=== PATIENT | male | born 1965 | race Caucasian/White ===

== ENCOUNTER 2017-01-25 14:00 | Observation (INO) | payer SELFPAY ==
[2017-01-25] MEDS ORDERED: REGADENOSON INJ 0.4 MG/5 ML DISP.SYRIN IV ONE (14:09)
[2017-01-25] MEDS ORDERED: AMINOPHYLLINE INJ/PF 250 MG/10 ML SDV IV ONE (14:09)
--- NOTE | 2017-01-25 14:30 | ER Document Report ---
ED Medical Screen (RME) - General Chief Complaint: Chest Pain Stated Complaint: CHEST PAIN Notes: This 51-year-old male reports onset about 10 AM of severe left anterior chest pain. States like he was hit with a sledgehammer. He is somewhat anxious and diaphoretic. He is a smoker. He reports some shortness of breath. His father of [place] in his early 50s and an uncle of [place] in early 50s. Past history is significant for left testicular cancer treated with orchiectomy , radiation and chemotherapy many years ago. I have greeted and performed a rapid initial assessment of this patient. A comprehensive ED assessment and evaluation of the patient, analysis of test results and completion of the medical decision making process will be conducted by additional ED providers. TRAVEL OUTSIDE OF THE [place] IN LAST 30 DAYS: No - Related Data Allergies/Adverse Reactions: No Known Allergies Allergy (Verified 01/25/17 14:27) Past Medical History Neurological Medical History: Reports: Hx Seizures Renal/ Medical History: Denies: Hx Peritoneal Dialysis - Immunizations Hx Diphtheria, Pertussis, Tetanus Vaccination: No Physical Exam - Vital signs Vitals: Temp Pulse Resp BP Pulse Ox 97.9 F 82 20 157/88 H 97 01/25/17 14:20 01/25/17 14:20 01/25/17 14:20 01/25/17 14:20 01/25/17 14:20 Course - Vital Signs Vital signs: Temp Pulse Resp BP Pulse Ox 97.9 F 82 20 157/88 H 97 01/25/17 14:20 01/25/17 14:20 01/25/17 14:20 01/25/17 14:20 01/25/17 14:20
[2017-01-25 15:20] LABS: ABSOLUTE EOSINOPHILS # (AUTO) 0.1 10^3/uL (0.0-0.6); ABSOLUTE MONOCYTES (AUTO) 0.7 10^3/uL (0.1-1.4); ABSOLUTE NEUT (AUTO) 5.9 10^3/uL (1.7-8.2); BASOPHILS % (AUTO) 0.4 % (0-2); EOSINOPHILS % (AUTO) 1.3 % (0-6); HEMATOCRIT 43.6 % (37.9-51.0); HEMOGLOBIN 15.1 g/dL (13.5-17.0); HGB HCT DIFFERENCE 1.7; LYMPHOCYTES % (AUTO) 22.5 % (13-45); MEAN CORPUSCULAR HEMOGLOBIN 30.4 pg (27.0-33.4); MEAN CORPUSCULAR HGB CONC 34.7 g/dL (32.0-36.0); MEAN CORPUSCULAR VOLUME 88 fl (80-97); MONOCYTES % (AUTO) 8.1 % (3-13); RED BLOOD COUNT 4.98 10^6/uL (4.35-5.55); RED CELL DISTRIBUTION WIDTH 13.2 % (11.5-14.0); SEGMENTED NEUTROPHILS % (AUTO) 67.7 % (42-78); WHITE BLOOD COUNT 8.8 10^3/uL (4.0-10.5)
[2017-01-25 15:44] LABS: ALANINE AMINOTRANSFERASE 33 U/L (21-72); ALBUMIN 4.7 g/dL (3.5-5.0); ALKALINE PHOSPHATASE 92 U/L (38-126); ANION GAP 14 (5-19); ASPARTATE AMINO TRANSFERASE 28 U/L (17-59); BILIRUBIN,DIRECT 0.3 mg/dL (0.0-0.4); BILIRUBIN,TOTAL 0.7 mg/dL (0.2-1.3); BLOOD UREA NITROGEN 18 mg/dL (7-20); CARBON DIOXIDE 28 mmol/L (22-30); CHLORIDE 102 mmol/L (98-107); CREATINE KINASE 157 U/L (55-170); CREATININE RESULT 0.99 mg/dL (0.52-1.25); GLUCOSE 74 mg/dL (75-110); POTASSIUM 4.9 mmol/L (3.6-5.0); SODIUM 143.7 mmol/L (137-145); TOTAL PROTEIN 7.8 g/dL (6.3-8.2)
--- NOTE | 2017-01-25 15:52 | ER Document Report ---
ED Cardiac - General Chief Complaint: Chest Pain Stated Complaint: CHEST PAIN Time seen by provider: 15:47 Mode of Arrival: Ambulatory Information source: Patient Notes: This is a 51-year-old man who is an active smoker, history of an elevated blood pressure and a significant family for heart disease or presents to the emergency room after an episode of chest pain. Patient states he had chest ache last night but didn't think it was that bad. He was then working in the yard today and he had severe left sided chest pain (like being hit with a hammer ) and experienced left arm numbness and a choking sensation. Patient states he felt short of breath at the time. The patient's states that he looked pale at the time. The patient states the symptoms lasted about 35 minutes. He denies any radiation to the back. He denies any abdominal pain. Currently he is in no distress. Past medical history: Testicular cancer status post left orchiectomy, chemotherapy, radiation therapy (in [place] in 2000). Patient has had no recurrence of cancer since that time. TRAVEL OUTSIDE OF THE [place] IN LAST 30 DAYS: No - HPI Patient complains to provider of: Chest pain Use of: denies: Alcohol, Amphetamines, Bath salts, Caffeine, Cocaine, Decongestants, Other Was the onset of pain: Sudden Is the pain a: New problem Chest pain location: Other - Left chest pain Quality of pain: Crushing Chest pain radiation location: Left shoulder Severity now: None Severity at worst: Severe Pain level currently: Denies Chest pain precipitating factors: Physical Exertion - Patient was doing yard work Cardiac risk factors: Hypertension, Smoker, + Family history Associated symptoms: Shortness of breath, Other - Choking sensation Exacerbated by: Denies Relieved by: Nothing Similar symptoms previously: No Recently seen / treated by doctor: No - Related Data Allergies/Adverse Reactions: No Known Allergies Allergy (Verified 01/25/17 14:27) Home Medications: Current Home Medications Omeprazole 20 mg PO DAILY 01/25/17 [History] Past Medical History - General Information source: Patient - Social History Smoking Status: Current Every Day Smoker Cigarette use (# per day): Yes - 1-1/2 packs per day Chew tobacco use (# tins/day): No Frequency of alcohol use: None Drug Abuse: None Lives with: Family Family History: Reviewed & Not Pertinent Patient has suicidal ideation: No Patient has homicidal ideation: No - Medical History Medical History: Negative Neurological Medical History: Reports: Hx Seizures Renal/ Medical History: Denies: Hx Peritoneal Dialysis Past Surgical History: Reports: Hx Genitourinary Surgery - Immunizations Hx Diphtheria, Pertussis, Tetanus Vaccination: No Review of Systems - Review of Systems Constitutional: See HPI EENT: No symptoms reported Cardiovascular: See HPI Respiratory: See HPI Gastrointestinal: No symptoms reported Genitourinary: No symptoms reported Male Genitourinary: No symptoms reported Musculoskeletal: No symptoms reported Skin: No symptoms reported Hematologic/Lymphatic: No symptoms reported Neurological/Psychological: No symptoms reported Physical Exam - Vital signs Vitals: Temp Pulse Resp BP Pulse Ox 97.9 F 82 20 157/88 H 97 01/25/17 14:20 01/25/17 14:20 01/25/17 14:20 01/25/17 14:20 01/25/17 14:20 Notes: Physical exam: GENERAL: 51-year-old man, alert and oriented 3, no acute distress. HEAD: Atraumatic, normocephalic. EYES: Pupils equal round and reactive to light, extraocular movements intact, sclera anicteric, conjunctiva are normal. ENT: TMs normal, nares patent, oropharynx clear without exudates. Moist mucous membranes. NECK: Normal range of motion, supple without lymphadenopathy or JVD. LUNGS: Breath sounds clear to auscultation bilaterally and equal. No wheezes rales or rhonchi. HEART: Regular rate and rhythm without murmurs, rubs or gallops. ABDOMEN: Soft, normoactive bowel sounds. No tenderness to palpation. No guarding, no rebound. No masses appreciated. Rectal: Brown stool, sent for study EXTREMITIES: Normal range of motion, no pitting or edema. No clubbing or cyanosis. NEUROLOGICAL: Cranial nerves II through XII grossly intact. Normal speech, normal gait. PSYCH: Normal mood, normal affect. SKIN: Warm, Dry, normal turgor, no rashes or lesions noted. Course - Vital Signs Vital signs: Temp Pulse Resp BP Pulse Ox 97.9 F 79 18 144/100 H 95 01/25/17 14:20 01/25/17 20:52 01/25/17 19:08 01/25/17 19:08 01/25/17 19:08 - Laboratory Result Diagrams: 01/25/17 14:40 01/25/17 14:40 Laboratory results interpreted by me: 01/25/17 14:40 Glucose 74 L - Diagnostic Test Radiology reviewed: Image reviewed, Reports reviewed - Chest x-ray shows no acute infiltrates - EKG Interpretation by Me Rate: Normal Rhythm: NSR - EKG shows normal sinus rhythm with a ventricular rate of 87, no acute ST elevations or depressions. Discharge - Discharge Clinical Impression: chest pain Admitting Provider: Hospitalist - Dr. Swanson Unit Admitted: Telemetry
[2017-01-25] MEDS ORDERED: NITROGLYCERIN 2% OINTMENT 1 GM PACKET TP ONE (15:53)
[2017-01-25] MEDS ORDERED: ACETAMINOPHEN 325 MG TABLET PO ONE (15:53)
[2017-01-25] MEDS ORDERED: ASPIRIN 81 MG TABLET, CHEWABLE PO ONE (15:53)
[2017-01-25 15:56] LABS: CREATINE KINASE MB 1.01 ng/mL (<4.55)
[2017-01-25 15:57] LABS: TROPONIN I < 0.012 ng/mL
[2017-01-25] MEDS: NORMAL SALINE 1000 ML 1,000 ML IV PRN (16:06)
[2017-01-25] MEDS ORDERED: MORPHINE SULFATE 10 MG/ML INJ IV PRN (17:53)
[2017-01-25] MEDS ORDERED: NITROGLYCERIN 0.4 MG/TAB 25 TAB/BOTTLE SL PRN (17:54)
--- NOTE | 2017-01-25 18:23 | PDOC H&P ---
History of Present Illness Admission Date/PCP: 01/25/17 17:37 PCP none Patient complains of: Chest pain History of Present Illness: TASHI FELIPE is a 51 year old white male with past medical history significant for seizures and testicular cancer who presents to the service with complaints of chest pain. The patient states that his pain began yesterday evening. He describes it as a sledgehammer hitting his chest. he denies any radiation. He describes left arm numbness. Working around the yard today when things seemed to get worse. Chest discomfort lasted about 35 minutes. Again associated with left arm numbness, shortness of breath, and cold sweats. His was in the room with him states that he became pale. He denies any associated palpitations. He didn't try any medications. Nothing makes things better or worse. He does have a history of GERD and ulcers. Takes Prevacid and believes it is under control. Denies any recent trauma or injury to his chest wall. His father and his father's brother of [place] less than the age of 65. He is currently a smoker and has smoked 1-1/2 packs per day since the age of 18. He also consumes 6-12 beers each night on average. Last alcohol consumption was last night. In the emergency room his pain was resolved. This was prior to being seen by the ED physician. Given aspirin and nitroglycerin paste anyway. He currently denies any chest discomfort. First set of troponins was negative. EKG showed normal sinus rhythm. Past Medical History Neurological Medical History: Reports: Seizures Renal/ History Note: History of testicular cancer. 12 years ago. GI Medical History: Reports: Peptic Ulcer Disease Past Surgical History Past Surgical History: Testicular removal Social History Lives with: Family Smoking Status: Current Every Day Smoker Family History Family History: CAD, DM, Hypertension Family History: Patient's father and paternal uncle less than the age of 65 from [place] Parental Family History Reviewed: Yes Children Family History Reviewed: Yes Sibling(s) Family History Reviewed.: Yes Medication/Allergy Home Medications: Omeprazole 20 mg PO DAILY 01/25/17 Allergies/Adverse Reactions: No Known Allergies Allergy (Verified 01/25/17 14:27) Review of Systems Review of Systems: Review of systems is positive is that aren't listed in the history of present illness in addition to this the patient denies fevers chills nausea vomiting, diarrhea, constipation dizziness lightheadedness, abdominal pain, arthritic pain , hot cold flashes, visual changes or unexplained weight loss or weight gain Physical Exam Vital Signs: Temp Pulse Resp BP Pulse Ox 97.9 F 82 14 144/103 H 98 01/25/17 14:20 01/25/17 14:20 01/25/17 16:01 01/25/17 16:01 01/25/17 16:01 PHYSICAL EXAM: GENERAL: This is a well-developed well-nourished white male resting in no acute distress. HEENT: Normocephalic atraumatic. Trachea is midline. Sclerae are anicteric. Poor dentition. HEART: Regular rate and rhythm. 2/6 systolic ejection murmur best heard over the left upper sternal border. No Rubs or gallops. LUNGS: Clear to auscultation bilaterally with equal rise and fall of the chest. ABDOMEN: Soft, nontender, nondistended with normoactive bowel sounds EXTREMITIES: No clubbing cyanosis or edema. 2+ posterior tibialis peripheral pulses. Strength 5 out of 5 in the upper and lower extremities bilaterally. NEURO: Awake, alert, oriented x3. Cranial nerves II through XII specifically intact. PSYCH: Normal affect. Results Impressions: Chest X-Ray 01/25/17 14:29 IMPRESSION: No acute findings Assessment & Plan - Diagnosis (1) Chest pain Plan: Admit to observation status. Obtain 2 more sets of troponins. At this point I don't believe that the patient is having an MRI. His symptoms started yesterday and his troponins are negative with the first set. Will stress in the morning after we have 2 additional negative sets of troponins. OMER is in place. (2) Tobacco abuse Plan: Smoking cessation is advised. Nicotine patch was offered however the patient has respectfully declined. (3) Alcohol dependence Plan: History consume 6-12 beers each evening on average. We will monitor for alcohol withdrawal. However I suspect that he will be discharged tomorrow free to call home and consume alcohol as he sees fit. Therefore withdrawal precautions have not been instituted. Will observe - Time Time Spent: 30 to 50 Minutes Smoking Cessation Education: 3 to 10 minutes - Inpatient Certification Medical Necessity: Significant Comorbidiites Make Outpatient Treatment Too Risky
--- NOTE | 2017-01-25 20:08 | EKG REPORT ---
SEVERITY:- BORDERLINE ECG - SINUS RHYTHM BORDERLINE RIGHT AXIS DEVIATION BORDERLINE T ABNORMALITIES, INFERIOR LEADS : Confirmed by: Viki Wilkerson MD 25-Jan-2017 20:07:42
[2017-01-25 21:19] LABS: CREATINE KINASE MB 0.81 ng/mL (<4.55)
[2017-01-25 21:22] LABS: TROPONIN I < 0.012 ng/mL
[2017-01-26 03:08] LABS: CHOLESTEROL 186.16 mg/dL (0-200); Direct HDL 38 mg/dL (>40); TRIGLYCERIDES 235 mg/dL (<150)
[2017-01-26 03:19] LABS: DIRECT LDL 87 mg/dL (<100)
[2017-01-26 03:20] LABS: CREATINE KINASE MB 0.63 ng/mL (<4.55)
[2017-01-26 03:23] LABS: TROPONIN I < 0.012 ng/mL
[2017-01-26] MEDS: NORMAL SALINE 1000 ML 1,000 ML IV PRN (04:22)
[2017-01-26] MEDS ORDERED: LANSOPRAZOLE 15 MG TAB.RAP.DR PO SCH (06:00)
[2017-01-26 08:07] VITALS: BP 159/87
[2017-01-26] MEDS ORDERED: ASPIRIN 325 MG TABLET, ENT COATED PO SCH (10:00)
--- NOTE | 2017-01-26 16:28 | DRAGON STRESS TEST REPORT ---
INTRAVENOUS LEXISCAN CARDIOLITE STRESS TEST USING SINGLE PHOTON EMMISION COMPUTERIZED TOMOGRAPHIC. DATE OF PROCEDURE: January 26, 2017 INDICATION : Chest pain CARDIAC RISK FACTORS: Tobacco abuse and family history of CAD RESTING EKG: Sinus rhythm, no Baseline ST-T wave changes noted STRESS EKG: No significant changes noted with LexiScan bolus REASON FOR TERMINATION: Protocol. PROCEDURE REPORT: Baseline heart rate 64 beats per minute with blood pressure of 137/87. Patient had no significant complaints. Heart rate at 2 minutes post bolus 92 with a blood pressure of 171/93. 3 minutes post bolus heart rate 77 with blood pressure of 159/94. No significant EKG changes were noted. Patient had no significant complaints during the procedure or postprocedure. Patient injected with Aminophyllin 75 mg at 3 minutes or later after Lexiscan bolus. CONCLUSIONS: Normal EKG and hemodynamic response to IV LexiScan. NUCLEAR DATA: At rest the patient was given 12.43 millicuries of technetium 99 sestamibi injected intravenously. As per protocol rest gated SPECT images were obtained. Subsequently the patient was given intravenous LexiScan at a dose of 0.4 mg in 5 mL intravenously, followed by flush with normal saline. Subsequently the stress dose of 37.1 millicuries of technetium 99 sestamibi was injected intravenously. As per protocol stress gated images were obtained. NUCLEAR INTERPRETATION: Both raw and processed data were used for interpretation. Visual, qualitative, computer-generated quantitative data was used. There was good myocardial uptake of technetium compound. Motion artifact and soft tissue attenuations were noted. Increased visceral uptake was noted. No definitive areas of transient perfusion defect noted. No definitive areas of fixed perfusion defect or scars noted. EKG gated imaging showed LV EF at 51 %, rest and stress gated EF similar visually. T. I D. ratio was 1.07. Lung heart ratio noted to be within normal limits 0.35. No significant extracardiac and abnormal radiotracer activities were noted. RV free wall uptake was noted to be normal. IMPRESSION: Also refer to comments under nuclear interpretation. Also test results needs to be interpreted in the context of pretest probability. 1. There is no definitive scintigraphic evidence of LexiScan induced myocardial ischemia. 2. There is no definitive scintigraphic evidence of myocardial infarction/scar. 3. EKG gated imaging shows left ejection fraction of approximately 51 %. 4. Clinical correlation requested as occasionally single vessel disease or balanced ischemia could be missed. In approximately 10% of the cases Lexiscan may not cause adequate vasodilatory stress. RECOMMENDATIONS: Aggressive risk factor modification, medical therapy. Clinical correlation with echocardiogram derived ejection fraction. Inability to exercise by itself can lead to increased cardiovascular event risks. Consider cardiology consultation and or follow-up if clinically indicated. I AM AVAILABLE FOR CARDIOLOGY CONSULTATION AND FOLLOWUP IF REQUESTED BY PMD Chanda Ghotra M.D., [employer], Board certified in cardiovascular diseases, Nuclear cardiology, Echocardiography Cardiac CT and cardiac MRI Ph. [phone] [facility]
--- NOTE | 2017-01-26 16:56 | PDOC DISCHARGE SUMMARY ---
General - Admit/Disc Date/PCP Admission Date/Primary Care Provider: 01/25/17 17:44 - Discharge Diagnosis (1) Chest pain Summary: CA rule out. Troponins are negative. Assessment negative. I suspect this could be uncontrolled GERD. I prescribed Protonix 40 mg daily. Patient has no primary care provider. I have recommended that he return to urgent care or to the ER if his chest discomfort returns (3) Alcohol dependence Summary: Decrease in alcohol intake is advised. - Additional Information Discharge Diet: Regular Discharge Activity: Activity As Tolerated Home Medications: Pantoprazole Sodium [Protonix] 40 mg PO DAILY #30 tablet. 01/26/17 History of Present Illness History of Present Illness: TASHI FELIPE is a 51 year old white male with past medical history significant for seizures and testicular cancer who presents to the service with complaints of chest pain. The patient states that his pain began yesterday evening. He describes it as a sledgehammer hitting his chest. he denies any radiation. He describes left arm numbness. Working around the yard today when things seemed to get worse. Chest discomfort lasted about 35 minutes. Again associated with left arm numbness, shortness of breath, and cold sweats. His was in the room with him states that he became pale. He denies any associated palpitations. He didn't try any medications. Nothing makes things better or worse. He does have a history of GERD and ulcers. Takes Prevacid and believes it is under control. Denies any recent trauma or injury to his chest wall. His father and his father's brother of [place] less than the age of 65. He is currently a smoker and has smoked 1-1/2 packs per day since the age of 18. He also consumes 6-12 beers each night on average. Last alcohol consumption was last night. In the emergency room his pain was resolved. This was prior to being seen by the ED physician. Given aspirin and nitroglycerin paste anyway. He currently denies any chest discomfort. First set of troponins was negative. EKG showed normal sinus rhythm. Hospital Course Hospital Course: The patient did well during his hospital stay. Troponins were trended which were negative he had a stress test which was also negative at that point I suspect this could be uncontrolled GERD. He should continue a PPI. And establish care with a primary care physician. Physical Exam Vital Signs: Temp Pulse Resp BP Pulse Ox 97.7 F 74 18 159/87 H 99 01/26/17 07:15 01/26/17 14:00 01/26/17 07:15 01/26/17 07:15 01/26/17 07:15 Intake & Output 01/25/17 01/26/17 01/27/17 06:59 06:59 06:59 Intake Total 360 Balance 360 Weight 85.2 kg PHYSICAL EXAM: GENERAL: This is a well-developed well-nourished white male resting in no acute distress. HEENT: Normocephalic atraumatic. Trachea is midline. Sclerae are anicteric. Poor dentition. HEART: Regular rate and rhythm. 2/6 systolic ejection murmur best heard over the left upper sternal border. No Rubs or gallops. LUNGS: Clear to auscultation bilaterally with equal rise and fall of the chest. ABDOMEN: nondistended EXTREMITIES: No clubbing cyanosis or edema. NEURO: Awake, alert, oriented x3. Cranial nerves II through XII specifically intact. PSYCH: Normal affect. Results Laboratory Results: 01/26/17 02:44 Triglycerides 235 H Cholesterol 186.16 LDL Cholesterol Direct 87 VLDL Cholesterol 47.0 H HDL Cholesterol 38 L 01/25/17 01/26/17 20:38 02:44 CK-MB (CK-2) 0.81 0.63 Troponin I < 0.012 < 0.012 Impressions: Chest X-Ray 01/25/17 14:29 IMPRESSION: No acute findings Qualifiers PATEINT BEING DISCHARGED WITH ANY OF THE FOLLOWING DIAGNOSIS?: No Plan Time Spent: Less than 30 Minutes
== END 2017-01-26 17:35 | disposition home or self-care (01) ==
LOC: ER 14:00 → EH 17:37 → UNDOADMOB 17:37 → EH 17:44 → 5 20:51
PROVIDERS: ADMIT Hospitalist; ATTEND Hospitalist
PROC: HZ31ZZZ Individual Counseling for Substance Abuse Treatment, Behavioral (ICD-10-PCS; principal; 2017-01-26)
DX: R07.89 Other chest pain (principal); F10.20 Alcohol dependence, uncomplicated; R20.0 Anesthesia of skin; K21.9 Gastro-esophageal reflux disease without esophagitis; F17.210 Nicotine dependence, cigarettes, uncomplicated; R01.1 Cardiac murmur, unspecified; R06.02 Shortness of breath; R09.89 Other specified symptoms and signs involving the circulatory and respiratory systems; Z82.49 Family history of ischemic heart disease and other diseases of the circulatory system; Z87.11 Personal history of peptic ulcer disease; Z90.79 Acquired absence of other genital organ(s); Z79.899 Other long term (current) drug therapy; Z85.47 Personal history of malignant neoplasm of testis; Z92.21 Personal history of antineoplastic chemotherapy; Z92.3 Personal history of irradiation
CPT/HCPCS: 99406; 93005; 99285; 96360; 96361; 36415 ×2; 82553 ×2; 82550; 85025; 82272; 80053; 84484 ×2; 80061; 93017; 71010; 78452; 93010; A9500; J2785; J3490 ×2; J7030 ×2; J0280; Q9969; G0378

== ENCOUNTER 2017-10-04 09:31 | Emergency (ER) | payer MEDICARE ==
--- NOTE | 2017-10-04 09:57 | ER Document Report ---
ED General - General Chief Complaint: General Weakness Stated Complaint: BLOOD PRESSURE ISSUES Time Seen by Provider: 10/04/17 09:42 Notes: 51-year-old male presents with several weeks of neurologic events, concern for stroke. Patient has a history of both chronic migraines and seizures for which she is on no seizure drugs. He describes events for the past 3 weeks consisting of staring off into space, not responding for a few minutes up to 15 minutes, intermittent left facial numbness then possible confusion for several minutes afterward. No body shaking or loss of consciousness. Patient knows when this is happening. He has no numbness or tingling in the arms or legs. He says starting yesterday the left facial numbness has become permanent. He has no headache right now. He has been evaluated by his neurologist, Dr. Bhatti at [facility] neurology and had both an MRI and EEG which he was told are normal. TRAVEL OUTSIDE OF THE [place] IN LAST 30 DAYS: No - Related Data Allergies/Adverse Reactions: No Known Allergies Allergy (Verified 01/25/17 14:27) Past Medical History - Social History Smoking Status: Current Every Day Smoker Smoking Education Provided: Yes - The patient ED visit today was directly related to their abuse of tobacco. Family History: CAD, DM, Hypertension Neurological Medical History: Reports: Hx Seizures Renal/ Medical History: Denies: Hx Peritoneal Dialysis Past Surgical History: Reports: Hx Genitourinary Surgery - Immunizations Hx Diphtheria, Pertussis, Tetanus Vaccination: No Review of Systems - Review of Systems Notes: REVIEW OF SYSTEMS GEN: Denies fever, chills, weight loss ENT: Denies sore throat, nasal discharge, ear pain EYES: Denies blurry vision, eye pain, discharge CV: Denies chest pain, palpitations, edema RESP: Denies cough, shortness of breath, wheezing GI: Denies abdominal pain, nausea, vomiting, diarrhea MSK: Denies joint pain/swelling, edema, SKIN: Denies rash, skin lesions LYMPH: Denies swollen glands/lymph nodes NEURO: Migraines, left facial numbness, episodes of confusion PSYCH: Denies depression, suicidal or homicidal ideation PHYSICAL EXAMINATION General: No acute distress, well-nourished Head: Atraumatic, normocephalic ENT: Mouth normal, oropharynx moist, no exudates or tonsillar enlargement Eyes: Conjunctiva normal, pupils equal, lids normal Neck: No JVD, supple, no guarding CVS: Normal rate, regular rhythm, no murmurs Resp: No resp distress, equal and normal breath sounds bilaterally GI: Nondistended, soft, no tenderness to palpation, no rebound or guarding Ext: No deformities, no edema, normal range of motion in upper and lower ext Back: No CVA or midline TTP Skin: No rash, warm Lymphatic: No lymphadeopathy noted Neuro: Awake, alert. Face symmetric. GCS 15. Annual nerves II through XII are intact except for decreased sensation subjectively over the cheek only, in the V2 distribution but not the V1 or V3. Normal glass cutting machine feeder strength, no pronator drift, normal sensation and strength in all 4 extremities. Normal speech. Physical Exam - Vital signs Vitals: Temp Pulse Resp BP Pulse Ox 98.5 F 70 14 183/101 H 96 10/04/17 09:38 10/04/17 09:38 10/04/17 09:38 10/04/17 09:38 10/04/17 09:38 Course - Re-evaluation Re-evalutation: There is a 51-year-old male with history of both migraine and seizure presenting with episodes which sound like's Versus Partial Seizures. He Is Already Been Evaluated at a Very High Level by a Neurologist with EEGs and MRIs Which Have Shown Nothing. His Only Change Today Is Left Facial Numbness, Which on My Exam, Exists Only in the Trigeminal Part to Distribution and Is Not concerning for Stroke or TIA. I Will Get a Head CT Because He Is Quite Concerned about a New Stroke, and Will Check Basic Labs. I Attempted to Contact His Neurologist for Consultation at about 9:50 AM but Was Unable to Get through the Phone System. 10/04/17 09:56 Patient noted to be hypertensive. He also says he was hypertensive in the doctor's office. This may or may not be related to his current presentation, I am not used to seeing hypertensive encephalopathy with only localized facial numbness and a blood pressure of 180, but will continue to monitor. 10/04/17 10:14 10/04/17 11:[address] Mari. Does not think we should start treatment yet and he will do an outpatient extended EEG I have discussed with the patient there likely diagnosis, aftercare plan, follow-up plans and my usual and customary return precautions. They verbalized understanding of this. - Vital Signs Vital signs: Temp Pulse Resp BP Pulse Ox 98.5 F 70 14 183/101 H 96 10/04/17 09:38 10/04/17 09:38 10/04/17 09:38 10/04/17 09:38 10/04/17 09:38 - Laboratory Result Diagrams: 10/04/17 09:50 10/04/17 09:50 Laboratory results interpreted by me: 10/04/17 09:50 Glucose 125 H Discharge - Discharge Clinical Impression: Hypertension Qualifiers: Hypertension type: unspecified Qualified Code(s): I10 - Essential (primary) hypertension Condition: Good Disposition: HOME, SELF-CARE Instructions: High Blood Pressure ([facility]), New Seizure ([facility]) Prescriptions: Levetiracetam [Keppra 500 mg Tablet] 500 mg PO Q12 #60 tablet Referrals: JUNIOR MARI MD [ACTIVE STAFF] - Follow up as needed
[2017-10-04 10:01] LABS: ABSOLUTE BASOPHILS # (AUTO) 0.1 10^3/uL (0.0-0.2); ABSOLUTE EOSINOPHILS # (AUTO) 0.3 10^3/uL (0.0-0.6); ABSOLUTE LYMPHOCYTES (AUTO) 2.1 10^3/uL (0.5-4.7); ABSOLUTE MONOCYTES (AUTO) 0.6 10^3/uL (0.1-1.4); ABSOLUTE NEUT (AUTO) 5.4 10^3/uL (1.7-8.2); BASOPHILS % (AUTO) 0.9 % (0-2); EOSINOPHILS % (AUTO) 3.2 % (0-6); HEMATOCRIT 44.9 % (37.9-51.0); HEMOGLOBIN 15.3 g/dL (13.5-17.0); MEAN CORPUSCULAR HEMOGLOBIN 29.6 pg (27.0-33.4); MEAN CORPUSCULAR HGB CONC 34.1 g/dL (32.0-36.0); MEAN CORPUSCULAR VOLUME 87 fl (80-97); MONOCYTES % (AUTO) 6.7 % (3-13); PLATELET COUNT 291 10^3/uL (150-450); RED BLOOD COUNT 5.18 10^6/uL (4.35-5.55); SEGMENTED NEUTROPHILS % (AUTO) 64.2 % (42-78); TOTAL CELLS COUNTED % (AUTO) 100 %; WHITE BLOOD COUNT 8.4 10^3/uL (4.0-10.5)
[2017-10-04 10:24] LABS: ANION GAP 10 (5-19); BLOOD UREA NITROGEN 15 mg/dL (7-20); CALCIUM 9.3 mg/dL (8.4-10.2); CARBON DIOXIDE 30 mmol/L (22-30); CHLORIDE 103 mmol/L (98-107); GLUCOSE 125 mg/dL (75-110); POTASSIUM 4.2 mmol/L (3.6-5.0); SODIUM 142.6 mmol/L (137-145)
--- NOTE | 2017-10-04 10:25 | RADIOLOGY REPORT (SQ) ---
EXAM DESCRIPTION: CT HEAD WITHOUT COMPLETED DATE/TIME: 10/04/2017 10:02 am REASON FOR STUDY: stroke sx COMPARISON: None. TECHNIQUE: Axial images acquired through the brain without intravenous contrast. Images reviewed wi th bone, brain and subdural windows. Images stored on PACS. All CT scanners at this facility use dose modulation, iterative reconstruction, and/or weight based d osing when appropriate to reduce radiation dose to as low as reasonably achievable (ALARA). [facility]: Dose Right [facility]: CareDose [facility]: Dose Right [facility]: Teradose 4D [facility]: AngelPrime RADIATION DOSE: CT Rad equipment meets quality standard of care and radiation dose reduction techniq ues were employed. CTDIvol: 64.6 mGy. DLP: 1163 mGy-cm. mGy. LIMITATIONS: None. FINDINGS: VENTRICLES: Normal size and contour. CEREBRUM: No masses. No hemorrhage. No midline shift. No evidence for acute infarction. Normal gra y/white matter differentiation. No areas of low density in the white matter. CEREBELLUM: No masses. No hemorrhage. No alteration of density. No evidence for acute infarction. EXTRAAXIAL SPACES: No fluid collections. No masses. ORBITS AND GLOBE: No intra- or extraconal masses. Normal contour of globe without masses. CALVARIUM: No fracture. PARANASAL SINUSES: No fluid or mucosal thickening. SOFT TISSUES: No mass or hematoma. OTHER: No other significant finding. IMPRESSION: NORMAL BRAIN CT WITHOUT CONTRAST. EVIDENCE OF ACUTE STROKE: NO. COMMENT: Quality ID # [id number]: Final reports with documentation of one or more dose reduction techniques (e.g., Automated exposure control, adjustment of the mA and/or kV according to patient size, use of iterative reconstruction technique) TECHNICAL DOCUMENTATION: JOB ID: [id number] All Rights Reserved
[2017-10-04 11:26] VITALS: BP 160/93
== END 2017-10-04 11:31 | disposition home or self-care (01) ==
LOC: ER 09:31
DX: I10 Essential (primary) hypertension (principal); R53.1 Weakness; R20.0 Anesthesia of skin; F17.200 Nicotine dependence, unspecified, uncomplicated
CPT/HCPCS: 36415; 70450; 80048; 85025; 99285